=== PATIENT | female | born 1970 | race Two or more races ===

== ENCOUNTER 2019-11-18 00:03 | Emergency (ER) | payer MEDICAID, OTHER ==
[~2019-11-18] VITALS: Ht 162.6 cm; Wt 120.7 kg
--- NOTE | 2019-11-18 00:19 | NUR ---
PETEY FOR C/O FROM [facility] @ FOR "MIGRAINE H/A" . PER REPORT "PT FELL AND HIT HEAD, NO KO" TO ER BED 2 AWAKE ALERT ORIENTED X4 AWAITING MD SÁNCHEZ
[2019-11-18] MEDS ORDERED: HYDROMORPHONE INJ 2 MG/ML DISP.SYRIN ONE (00:36)
[2019-11-18] MEDS ORDERED: LORAZEPAM 1 MG TABLET ONE (00:36)
[2019-11-18] MEDS ORDERED: ONDANSETRON 4 MG TAB.RAPDIS ONE (00:37)
[2019-11-18] MEDS ORDERED: ONDANSETRON 4 MG TAB.RAPDIS SL ONE (01:00)
[2019-11-18] MEDS ORDERED: HYDROMORPHONE INJ 2 MG/ML DISP.SYRIN IM ONE (01:00)
[2019-11-18] MEDS ORDERED: LORAZEPAM 1 MG TABLET PO ONE (01:00)
--- NOTE | 2019-11-18 01:56 | NUR ---
PT REMAINS IN BED, SLEEPING, NO APPARENT PAIN OR DISCOFORT AT THE MOMENT
--- NOTE | 2019-11-18 02:28 | NUR ---
[facility] PER [facility]
--- NOTE | 2019-11-18 02:30 | NUR ---
CALLED [facility] TRANSPORT TO [facility]. ETA [id number].
--- NOTE | 2019-11-18 03:10 | NUR ---
CALLED [facility] FOR REPORT TO СВЕТЛАНА BOND
--- NOTE | 2019-11-18 03:54 | NUR ---
REPORT GIVEN TO [facility]
[2019-11-18 03:57] VITALS: BP 144/82
== END 2019-11-18 04:11 ==
LOC: ER 00:06
DX: G43.909 Migraine, unspecified, not intractable, without status migrainosus (principal); F17.200 Nicotine dependence, unspecified, uncomplicated; I10 Essential (primary) hypertension; F41.9 Anxiety disorder, unspecified; F32.9 Major depressive disorder, single episode, unspecified; Z88.8 Allergy status to other drugs, medicaments and biological substances
CPT/HCPCS: 96372; 99285; 99406; J1170; Q0162